=== PATIENT | female | born 1955 | race Hispanic/Latino ===

== ENCOUNTER 2017-08-02 14:41 | Emergency (ER) | payer MEDICARE ==
[2017-08-02 14:47] VITALS: BMI 28.8
[2017-08-02 14:50] VITALS: TEMP 98
--- NOTE | 2017-08-02 15:17 | ED PDOC ---
Arrival/HPI - General Historian: Patient <Ky Alfonso - Last Filed: 08/02/17 19:00> <Herman Velez P - Last Filed: 08/03/17 05:03> - General Chief Complaint: ENT Problem Time Seen by Provider: 08/02/17 14:43 - History of Present Illness Narrative History of Present Illness (Text): 08/02/17 15:05 A 62 year old female, whose past medical history includes lung CA, presents to the emergency department sent by Dr. Munoz for evaluation. Patient is here for evaluation of neck swelling. Dr. Munoz requests Neck/Chest CT. Patient denies of any other complaints. PMD: Dr. Diane Munoz (Ky Alfonso) Past Medical History - Provider Review Nursing Documentation Reviewed: Yes - Infectious Disease Hx of Infectious Diseases: None - Tetanus Immunization Tetanus Immunization: Unknown - Pulmonary Other/Comment: lung CA, discovered on xray, 2011, after attending a smoking cessation prog. offered at [facility]. Pt. began Chemo therapy w/Dr. Heller, but switched to [facility] for treatment. Pt. currently. takes PO chemo called taxiter - Neurological Hx Neurological Disorder: No - Hematological/Oncological Hx Cancer: Yes (lung ca) Hx Chemotherapy: Yes - Integumentary Hx Dermatological Disorder: Yes - Musculoskeletal/Rheumatological Hx Falls: No - Psychiatric Hx Depression: No Hx Emotional Abuse: No Hx Physical Abuse: No Hx Substance Use: No - Past Surgical History Past Surgical History: No Previous - Anesthesia Hx Anesthesia: No - Suicidal Assessment Feels Threatened In Home Enviroment: No <Ky Alfonso - Last Filed: 08/02/17 19:00> Family/Social History - Physician Review Nursing Documentation Reviewed: Yes Family/Social History: No Known Family HX Smoking Status: Unknown If Ever Smoked Hx Alcohol Use: No Hx Substance Use: No Hx Substance Use Treatment: No <Ky Alfonso - Last Filed: 08/02/17 19:00> Allergies/Home Meds <Ky Alfonso - Last Filed: 08/02/17 19:00> <Herman Velez P - Last Filed: 08/03/17 05:03> Allergies/Adverse Reactions: Allergies celecoxib Allergy (Verified 08/02/17 14:47) RASH naproxen Allergy (Verified 08/02/17 14:47) RASH Penicillins Allergy (Verified 08/02/17 14:47) RASH Home Medications: Home Meds Medication Instructions Recorded Confirmed ALPRAZolam [Xanax] 1 tab PO DAILY 08/02/17 08/02/17 ALPRAZolam [Xanax] 1 tab PO TID 08/02/17 08/02/17 Bupropion HCl [Bupropion Xl] 1 tab PO DAILY 08/02/17 08/02/17 Escitalopram [Lexapro] 1 tab PO DAILY 08/02/17 08/02/17 Montelukast [Singulair] 1 tab PO HS 08/02/17 08/02/17 NIFEdipine ER [Procardia XL] 1 tab PO DAILY 08/02/17 08/02/17 Review of Systems - Physician Review All systems were reviewed & negative as marked: Yes - Review of Systems Constitutional: absent: Fevers, Night Sweats Respiratory: absent: SOB, Cough Cardiovascular: absent: Chest Pain Musculoskeletal: Other (swelling to neck) <Ky Alfonso - Last Filed: 08/02/17 19:00> Physical Exam Vital Signs Reviewed: Yes Temperature: Afebrile Blood Pressure: Normal Pulse: Regular Respiratory Rate: Normal Appearance: Positive for: Well-Appearing Pain Distress: None Mental Status: Positive for: Alert and Oriented X 3 - Systems Exam Head: Present: Atraumatic, Normocephalic Pupils: Present: PERRL Extroacular Muscles: Present: EOMI Conjunctiva: Present: Normal Mouth: Present: Moist Mucous Membranes Neck: Present: Lymphadenopathy (cervical) Respiratory/Chest: Present: Clear to Auscultation, Good Air Exchange. No: Respiratory Distress, Accessory Muscle Use Cardiovascular: Present: Regular Rate and Rhythm, Normal S1, S2. No: Murmurs Abdomen: Present: Normal Bowel Sounds. No: Tenderness, Distention, Peritoneal Signs Back: Present: Normal Inspection Upper Extremity: Present: Normal Inspection. No: Cyanosis, Edema Lower Extremity: Present: Normal Inspection. No: Edema Neurological: Present: GCS=15, CN II-XII Intact, Speech Normal Skin: Present: Warm, Dry, Normal Color. No: Rashes Psychiatric: Present: Alert, Oriented x 3, Normal Insight, Normal Concentration <Ky Alfonso - Last Filed: 08/02/17 19:00> Vital Signs Temp Pulse Resp BP Pulse Ox 08/02/17 19:21 98.0 F 57 L 17 152/49 H 98 08/02/17 17:39 59 L 18 126/69 98 08/02/17 15:57 61 18 128/71 97 08/02/17 14:50 98.0 F 59 L 18 132/76 97 Medical Decision Making <Ky Alfonso - Last Filed: 08/02/17 19:00> <Herman Velez - Last Filed: 08/03/17 05:03> ED Course and Treatment: 08/02/17 15:10 Impression: 62 year old female sent in by Dr. Munoz for neck swelling. Physical exam shows cervical lymphadenopathy; otherwise rest of examination is benign. Plan: -- Neck/Chest CT -- Labs -- Reassess and disposition Progress Notes: 08/02/17 19:00 signed out to night team, pending ct and final dispo (Ky Alfonso) 08/02/17 19:15 Case endorsed to me by Dr. Alfonso. Pending CT and Final disposition. PROCEDURE: CT Neck and Chest with contrast Dictator : Pernell Treviño MD Report Date : 08/02/2017 19:10:26 IMPRESSION: Stable bilateral pulmonary nodules are identified including dominant nodule 1.4 cm greatest dimension the right upper lobe. No suspicious lymphadenopathy. No alveolitis pleural or pericardial effusion. Unremarkable neck CT with contrast. CT chest and neck shows NO acute pathology. will d/c discussed with dr. Munoz who wishes to have the patient signout AMA 08/02/17 21:19 Leaving Against Medical Advice (AMA): The patient is choosing to leave against medical advice. I have personally explained to the patient that choosing to do so may result in permanent bodily harm or . I have discussed at great length that without further evaluation and monitoring there may be unforeseen circumstances and/or deterioration causing permanent bodily harm or as a result of their choice. The patient is alert, oriented, and shows the mental capacity to make clear decisions regarding the patients health care at this time. The patient continues to wish to leave against medical advice. In light of the patients decision to leave against medical advice, and states she will follow-up with ENT and the patient is aware of the importance to following up as instructed. The patient has been advised that they should return to the emergency room immediately if they change their mind at any time, or if their condition begins to change or worsen in any way. 08/03/17 05:03 (Herman Velez) - Lab Interpretations Lab Results: 08/02/17 16:11 08/02/17 16:11 Lab Results 08/02/17 16:11: Sodium 141, Potassium 4.4, Chloride 108 H, Carbon Dioxide 22, Anion Gap 15, BUN 18, Creatinine 0.9, Est GFR ( Amer) > 60, Est GFR (Non- Af Amer) > 60, Random Glucose 96, Calcium 9.8, Total Bilirubin 0.9, AST 52 H, ALT 52, Alkaline Phosphatase 81, Total Protein 7.9, Albumin 4.5, Globulin 3.4, Albumin/Globulin Ratio 1.3 08/02/17 16:11: PT 10.5, INR 0.96, APTT 29.2 08/02/17 16:11: WBC 7.4, RBC 4.12, Hgb 12.0, Hct 36.9, MCV 89.6, MCH 29.1, MCHC 32.5, RDW 15.0 H, Plt Count 316, MPV 9.0, Gran % 51.5, Lymph % (Auto) 36.4 H, Buchanan % (Auto) 8.4 H, Eos % (Auto) 3.2, Baso % (Auto) 0.5, Gran # 3.82, Lymph # 2.7, Buchanan # 0.6, Eos # 0.2, Baso # 0.04 - RAD Interpretation Radiology Orders: 08/02/17 15:10 NECK,CHEST WITH CONTRAST [CT] Stat - Scribe Statement The provider has reviewed the documentation as recorded by the Scribe <Ky Alfonso - Last Filed: 08/02/17 19:00> <Herman Velez - Last Filed: 08/03/17 05:03> - Scribe Statement Bronwyn King Provider Scribe Attestation: All medical record entries made by the Scribe were at my direction and personally dictated by me. I have reviewed the chart and agree that the record accurately reflects my personal performance of the history, physical exam, medical decision making, and the department course for this patient. I have also personally directed, reviewed, and agree with the discharge instructions and disposition. (Ky Alfonso) Disposition/Present on Arrival - Present on Arrival History of DVT/PE: No History of Uncontrolled Diabetes: No Urinary Catheter: No History of Decub. Ulcer: No History Surgical Site Infection Following: None <Ky Alfonso - Last Filed: 08/02/17 19:00> - Present on Arrival Any Indicators Present on Arrival: No History of DVT/PE: No History of Uncontrolled Diabetes: No Urinary Catheter: No History of Decub. Ulcer: No - Disposition Have Diagnosis and Disposition been Completed?: Yes Disposition Time: 20:48 Patient Plan: Discharge <Herman Velez - Last Filed: 08/03/17 05:03> - Disposition Diagnosis: Globus sensation Disposition: AGAINST MEDICAL ADVICE Condition: STABLE Additional Instructions: followup with an Ear nose and throat doctor for direct visualization and functional evaluation of the throat. Referrals: Johan Head, [Staff Provider] - Follow up with primary (please evualuate for globus sensation within 1 week. followup with oncologist as well. ) Forms: [employer] ([place])
[2017-08-02 16:18] LABS: BASO # 0.04 K/mm3 (0.0-2.0); BASO % 0.5 % (0.0-3.0); EOS # 0.2 (0.0-0.7); EOS % 3.2 % (1.5-5.0); GRAN # 3.82 (1.4-6.5); GRAN % 51.5 % (50.0-68.0); HEMATOCRIT 36.9 % (36.0-48.0); LYMPH # 2.7 (1.2-3.4); LYMPH % 36.4 % (22.0-35.0); MEAN CELL VOLUME 89.6 fl (80.0-105.0); MEAN CORPUSCULAR HEMOGLOBIN 29.1 pg (25.0-35.0); MEAN CORPUSCULAR HGB CONC 32.5 g/dl (31.0-37.0); MONO # 0.6 (0.1-0.6); MONO % 8.4 % (1.0-6.0); WHITE BLOOD COUNT 7.4 10^3/ul (4.5-11.0)
[2017-08-02 16:28] LABS: ALB/GLOB RATIO 1.3 (1.1-1.8); BILIRUBIN,TOTAL 0.9 mg/dL (0.2-1.3); CALCIUM 9.8 mg/dL (8.4-10.5); GFR AFRICAN-AMERICAN > 60; GLUCOSE,RANDOM 96 mg/dL (70-110); TOTAL PROTEIN 7.9 g/dL (5.8-8.3)
[2017-08-02 16:30] LABS: ALKALINE PHOSPHATASE 81 U/L (38-126); ALT/SGPT 52 U/L (7-56); AST/SGOT 52 U/L (14-36); BLOOD UREA NITROGEN 18 mg/dL (7-21); CARBON DIOXIDE 22 mmol/L (21-33); CHLORIDE 108 mmol/L (98-107); INR 0.96 (0.93-1.08); PARTIAL THROMBOPLASTIN TIME 29.2 Seconds (25.1-36.5); POTASSIUM 4.4 mmol/L (3.6-5.0); SODIUM 141 mmol/L (132-148)
[2017-08-02 17:39] VITALS: O2SAT 98
[2017-08-02] MEDS ORDERED: Iohexol 350 MG/100 ML VIAL ONE (17:45)
[2017-08-02 19:23] VITALS: BP 152/49; PULSE 57; RESP 17
--- NOTE | 2017-08-02 20:51 | CT ---
PROCEDURE: CT Neck and Chest with contrast HISTORY: neck swelling h/o of lung ca COMPARISON: None. TECHNIQUE: Contiguous axial images were obtained through the chest with intravenous contrast enhancement. Sagittal and coronal reconstructions were performed. IV contrast: Radiation dose (DLP): mGy-cm. This CT exam was performed using one or more of the following dose reduction techniques: Automated exposure control, adjustment of the mA and/or kV according to patient size, and/or use of iterative reconstruction technique. FINDINGS: Neck: Evaluation of the neck soft tissues reveals no cystic or solid mass in the supra or infrahyoid compartments. There is no significant lymphadenopathy with shotty lymph nodes seen in the neck. The salivary glands are intact without cystic/solid mass as well as the thyroid gland. No significant vascular pathology is appreciated with the visualized upper aerodigestive tract patent and nonfocal. LUNGS: Multiple scattered sub cm nodules are seen at the right greater than left upper lobes which are largely under 5 mm greatest dimension. The nodules at the left upper lobe apex is somewhat ground-glass opacity rather than solid-appearing. A benign nodule seen in the right upper lobe in image 140 series 2 measuring 1.3 x 0.8 cm, stable in size compared to the 11/15/2012 CT exam. No alveolar infiltrate. Central airways appear clear. MEDIASTINUM: Unremarkable thoracic aorta. There is borderline cardiomegaly. Main pulmonary artery unremarkable. No vascular congestion. No lymphadenopathy. A left-sided life port catheter is placed with the tip terminating at the cavoatrial junction. PLEURA: No pleural fluid. No pneumothorax. BONES: No fracture. No destructive lesion. UPPER ABDOMEN: Grossly unremarkable. OTHER FINDINGS: None. IMPRESSION: Stable bilateral pulmonary nodules are identified including dominant nodule 1.4 cm greatest dimension the right upper lobe. No suspicious lymphadenopathy. No alveolitis pleural or pericardial effusion. Unremarkable neck CT with contrast.
== END 2017-08-02 21:06 | disposition left against medical advice (07) ==
LOC: ED 14:41
DX: F45.8 Other somatoform disorders (principal); Z85.118 Personal history of other malignant neoplasm of bronchus and lung
CPT/HCPCS: 70491; 71260; 80053; 85025; 85610; 85730; 99283; Q9967

== ENCOUNTER 2019-01-23 10:58 | Outpatient (CLI) | payer MEDICARE | END 2019-01-23 10:59 | disposition home or self-care (01) | LOC: RAD 10:58 ==